=== PATIENT | male | born 1950 | race Two or more races ===

== ENCOUNTER 2024-03-26 10:52 | Emergency (ER) | payer OTHER ==
[~2024-03-26] VITALS: Ht 180.3 cm; Wt 128.0 kg
[2024-03-26 12:08] VITALS: BP 117/78; PULSE 101; RESP 24; TEMP 98.2; O2SAT 93
[2024-03-26] MEDS: cefTRIAXone SOD 1,000 MG VL IM ONE (12:27)
[2024-03-26] MEDS: SILVER SULFADIAZINE 1 % TOPICAL CREAM 50GM TOP ONE (12:35)
[2024-03-26] MEDS ORDERED: CEPH500C PO (12:38)
[2024-03-26] MEDS ORDERED: ACET-1080 PO (12:38)
== END 2024-03-26 12:53 | disposition home or self-care (01) ==
LOC: ER 10:52
DX: T24.231A Burn of second degree of right lower leg, initial encounter (principal); S70.321A Blister (nonthermal), right thigh, initial encounter; J44.9 Chronic obstructive pulmonary disease, unspecified; E11.9 Type 2 diabetes mellitus without complications; X10.2XXA Contact with fats and cooking oils, initial encounter; Y93.89 Activity, other specified; Y92.89 Other specified places as the place of occurrence of the external cause; Y99.8 Other external cause status
CPT/HCPCS: 10140; 82962; 96372; 99284; J0696